=== PATIENT | female | born 1950 | race Caucasian/White ===

== ENCOUNTER 2022-02-06 09:45 | Outpatient (CLI) | payer BC, SELFPAY ==
[2022-02-06 11:32] LABS: Creatinine Urine 84.5 mg/dL
[2022-02-06 11:36] LABS: Microalbumin Creatinine Ratio 20 mg/g (0-30); Microalbumin Urine 2 mg/dL
[2022-02-06 14:17] LABS: Chloride* 106 mmol/L (96-114); Potassium* 4.6 mmol/L (3.6-5.1); Sodium* 137 mmol/L (135-149)
[2022-02-06 14:20] LABS: Blood Urea Nitrogen* 12 mg/dL (7-30); Carbon Dioxide* 25 mmol/L (20-32); Cholesterol* 177 mg/dL (90-199); Creatinine* 0.5 mg/dL (0.5-1.5); Estimated Glomerular Filt Rate 101 ml/min
[2022-02-06 14:21] LABS: Alanine Aminotransferase* 14 U/L (4-35); Glucose* 227 mg/dL (60-115); Triglycerides* 100 mg/dL (40-149)
[2022-02-06 14:37] LABS: HDL Cholesterol* 79 mg/dL (>=50); LDL Cholesterol Calculated 78 mg/dL (<100)
== END 2022-02-06 09:46 | disposition home or self-care (01) ==
PROVIDERS: PCP Family Medicine; Visit Provider Family Medicine
DX: E11.9 Type 2 diabetes mellitus without complications (principal); E78.5 Hyperlipidemia, unspecified; I10 Essential (primary) hypertension
CPT/HCPCS: 80048; 80061; 82043; 82570; 84460

== ENCOUNTER 2022-04-24 14:48 | Outpatient (CLI) | payer BC, SELFPAY ==
--- NOTE | 2022-04-24 15:00 | CRLHL7_ITS ---
For Patients: As a result of the Century Cures Act, medical imaging exams and procedure reports are released immediately into your electronic medical record. You may view this report before your referring provider. If you have questions, please contact your health care provider. BILATERAL SCREENING MAMMOGRAM WITH COMPUTER-AIDED DETECTION AND TOMOSYNTHESIS TECHNIQUE: CC and MLO views were obtained. These mammographic images have been obtained using full-field digital technique. These mammographic images were interpreted with the benefit of computer-aided detection. Breast Tomosynthesis was used in this interpretation. COMPARISON FILM: 04/18/19, 10/17/14, 07/19/13. FINDINGS: There are scattered areas of fibroglandular density IMPRESSION: There is no radiographic evidence for malignancy. ASSESSMENT: BI-RADS Category 1: Negative RECOMMENDATION: Routine screening mammogram in 1 year. A lay language report of this examination will be provided to the patient. Guillermo Spaulding M.D. Diagnostic Radiologist [email or web address] LINO/Dictated by: Guillermo Spaulding MD @ 04/27/2022 9:23:00 AM (Electronically Signed)
== END 2022-04-24 14:49 | disposition home or self-care (01) ==
PROVIDERS: PCP Family Medicine; Visit Provider Family Medicine
DX: Z12.31 Encounter for screening mammogram for malignant neoplasm of breast (principal)
CPT/HCPCS: 77063; 77067

== ENCOUNTER 2022-10-30 13:14 | Outpatient (CLI) | payer BC, SELFPAY | END 2022-10-30 13:15 | disposition home or self-care (01) | LOC: NFLDREF 13:17 | PROVIDERS: PCP Family Medicine; Visit Provider Family Medicine | DX: E78.5 Hyperlipidemia, unspecified (principal); I10 Essential (primary) hypertension; E11.9 Type 2 diabetes mellitus without complications; R10.9 Unspecified abdominal pain; Z13.9 Encounter for screening, unspecified | CPT/HCPCS: 80048; 80061; 84460 ==

== ENCOUNTER 2024-02-02 08:20 | Outpatient (CLI) | payer BC, SELFPAY | END 2024-02-02 08:21 | disposition home or self-care (01) | LOC: NFLDREF 02-03 10:29 | PROVIDERS: PCP Family Medicine; Referring Provider Family Medicine; Visit Provider Family Medicine | DX: E11.9 Type 2 diabetes mellitus without complications (principal); E78.2 Mixed hyperlipidemia; I10 Essential (primary) hypertension; Z79.4 Long term (current) use of insulin | CPT/HCPCS: 80053; 80061; 82043; 82570 ==

== ENCOUNTER 2024-02-11 11:18 | Outpatient (CLI) | payer MEDICARE, BC, SELFPAY ==
--- NOTE | 2024-02-11 11:30 | CRLHL7_ITS ---
For Patients: As a result of the Cures Act, medical imaging exams and procedure reports are released immediately into your electronic medical record. You may view this report before your referring provider. If you have questions, please contact your health care provider. CLINICAL HISTORY: Other signs and symptoms, hx of tobacco use TECHNIQUE: The carotid circulations and the vertebral arteries in the neck were examined with aguilar-scale ultrasound, color-flow and Doppler spectral analysis. Degrees of stenosis were determined using SRU 2002 Consensus Panel Criteria. FINDINGS: Sonographic images demonstrate bilateral atherosclerotic plaque formation without suspicious soft tissue mass. There was antegrade blood flow demonstrated within the vertebral arteries and the subclavian arteries. The spectral Doppler tracings of the common carotid, internal and external carotid arteries demonstrate no abnormal turbulence or spectral broadening. There was no significant elevation of peak systolic blood flow which would indicate a hemodynamically-significant stenosis by SRU criteria. The ICA/CCA peak systolic velocity ratio measures 1.2 on the right and 1.0 on the left. IMPRESSION: Less than 50 percent stenosis of the internal carotid arteries bilaterally. Dictated by Guillermo Spaulding MD @ 02/11/2024 1:18:30 PM (Electronically Signed)
== END 2024-02-11 11:19 | disposition home or self-care (01) ==
LOC: US 11:23
PROVIDERS: PCP Family Medicine; Visit Provider Family Medicine
DX: R09.89 Other specified symptoms and signs involving the circulatory and respiratory systems (principal); I65.23 Occlusion and stenosis of bilateral carotid arteries
CPT/HCPCS: 93880